=== PATIENT | female | born 1985 | race Caucasian/White ===

== ENCOUNTER 2020-07-24 22:31 | Emergency (ER) | payer BC ==
[~2020-07-24] VITALS: Ht 162.6 cm; Wt 75.0 kg
[~2020-07-24 22:31] MED LIST: AMOXICILLIN/CL875 MG OR; AMOXICILLIN875 MG OR; AUGMENTIN875 MG PO; AUGMENTIN875TAB OR; BACTRIM DS1 TAB PO; BENADRYL 25MG C25 MG PO; BIOTIN1000 MCG OR; CIPRO500 MG PO; CIPROFLOXACN500 MG PO; CYCLOBENZAPR5 MG PO; DEPO-MEDROL80 MG/ML IM; DIFLUCAN150 MG OR; FLUARIX QUADRIV1 INJ IM; GLUCOSAMINE500 M1 OR; HYCODAN5 MG PO; IRON325 MG PO; LORTAB 7.5 PO; LORTAB 7.57.5 MG PO; Levaquin OR; MEDDOSEPAK PO; MELATONIN1 TA1 OR; MOTRIN200 MG PO; MULTI VIT PO; NAPROSYN500 MG PO; NUVARING VA; PHENERGAN25 MG/ML IM; PHENERGAN25 MG/TAB PO; PROAIR HFA IN; ROCEPHIN 2250 MG/VIA IM; SOLU-MEDROL125 MG IM; TESSALON200 MG PO; TUMS500 MG PO; TUSSIONEX1 ML PO; WELLBUTRIN150 M2 OR; ZOFRAN ODT4 MG OR; [UNRECOGNIZED DRUG - OTHER] OR; [UNRECOGNIZED DRUG - OTHER] PO
[2020-07-24 23:19] LABS: URINE BILIRUBIN - DIPSTICK NEGATIVE (NEGATIVE); URINE BLOOD DIPSTICK LARGE (NEGATIVE); URINE COLOR YELLOW; URINE GLUCOSE - DIPSTICK NEGATIVE (NEGATIVE); URINE KETONE TRACE mg/dL (NEGATIVE); URINE LEUK ESTERASE TRACE (NEGATIVE); URINE PH 6.5 (4.5-8.0); URINE PROTEIN - DIPSTICK >=300 mg/dL (NEG-TRACE); URINE SPECIFIC GRAVITY 1.025
[2020-07-24 23:26] LABS: URINE NITRITE - DIPSTICK POSITIVE (Negative)
[2020-07-24 23:28] LABS: URINE BACTERIA FEW hpf; URINE RBC TNTC RBC/hpf (0-5); URINE SQUAMOUS EPITHELIAL CELL FEW EPI/hpf (0-FEW)
[2020-07-24] MEDS ORDERED: CEPHALEXIN500 MG PO (23:32)
[2020-07-24] MEDS ORDERED: PYRIDIUM200 MG PO (23:32)
[2020-07-24 23:58] VITALS: BP 110/70
== END 2020-07-24 23:58 | disposition home or self-care (01) | DRG 690 ==
LOC: ED 22:31
PROVIDERS: Emergency Medicine
DX: N39.0 Urinary tract infection, site not specified (principal); B96.20 Unspecified Escherichia coli [E. coli] as the cause of diseases classified elsewhere

== ENCOUNTER 2024-06-23 20:09 | Emergency (ER) | payer BC ==
[~2024-06-23] VITALS: Ht 162.6 cm; Wt 84.0 kg
[~2024-06-23 20:09] MED LIST changes: +CEPHALEXIN500 MG PO; +PYRIDIUM200 MG PO
[2024-06-23] MEDS ORDERED: KETOROLAC TROMETHAMINE 30 MG/ML SDV IM ONE (20:25)
[2024-06-23 23:30] VITALS: BP 122/82
== END 2024-06-23 23:30 | disposition home or self-care (01) | DRG 605 ==
LOC: ED 20:09
PROC: 2W3KX1Z Immobilization of Left Finger using Splint (ICD-10-PCS; principal; 2024-06-23)
DX: S60.012A Contusion of left thumb without damage to nail, initial encounter (principal); W20.8XXA Other cause of strike by thrown, projected or falling object, initial encounter; Y93.B3 Activity, free weights; Y92.39 Other specified sports and athletic area as the place of occurrence of the external cause